=== PATIENT | male | born 1990 | race African-American/Black ===

== ENCOUNTER 2022-12-04 13:55 | Emergency (ER) | payer OTHER ==
[2022-12-04 14:34] LABS: GLUCOSE, URINE (UA) NEGATIVE (NEGATIVE); KETONES,URINE (UA) TRACE mg/dL (NEGATIVE); LEUKOCYTE ESTERASE, URINE NEGATIVE (NEGATIVE); NITRITE,URINE NEGATIVE (NEGATIVE); OCCULT BLOOD,URINE TRACE-INTA (NEGATIVE); PH,URINE 5.5 PH (5.0-7.5); PROTEIN,URINE 30 mg/dL (NEGATIVE); UROBILINOGEN,URINE 0.2 (NORMAL) E.U./dL (NORMAL)
[2022-12-04 14:46] LABS: BASOPHILS % (AUTO) 0.3 %; EOSINOPHILS % (AUTO) 0.4 %; HCT - HEMATOCRIT 54.4 % (42.0-52.0); HGB - HEMOGLOBIN 16.7 g/dL (14.0-18.0); LYMPHOCYTES # (AUTO) 0.4 10^3/uL (1.5-3.5); MEAN CORPUSCULAR HEMOGLOBIN 25.7 pg (27.0-31.0); MEAN CORPUSCULAR HGB CONC 30.7 g/dL (32.0-36.0); MEAN CORPUSCULAR VOLUME 83.8 fL (80.0-94.0); MEAN PLATELET VOLUME 10.2 fL (7.4-11.4); MONOCYTES # (AUTO) 0.3 10^3/uL (0.0-1.0); MONOCYTES % (AUTO) 4.3 %; NEUTROPHILS # (AUTO) 6.3 10^3/uL (1.5-6.6); NEUTROPHILS % (AUTO) 89.9 %; PLT - PLATELET COUNT 321 10^3/uL (130-450); RED BLOOD COUNT 6.49 10^6/uL (4.70-6.10); RED CELL DISTRIBUTION WIDTH 12.4 % (12.0-15.0)
[2022-12-04 14:47] LABS: BACTERIA,URINE Few /HPF (None Seen); BILIRUBIN,URINE NEGATIVE (NEGATIVE); CLARITY,URINE CLEAR (CLEAR); ICTOTEST,URINE NEGATIVE; MUCUS,URINE Marked Strands; RBC,URINE 0-5 /HPF (0-5); SQUAMOUS EPITHELIAL CELL,UR RARE Squamous (<= Few); WBC,URINE 0-3 /HPF (0-3)
[2022-12-04 14:57] LABS: ALBUMIN 5.5 g/dL (3.2-5.5); ALBUMIN/GLOBULIN RATIO 1.3 (1.0-2.2); CALCIUM 9.9 mg/dL (8.5-10.3); CREATININE 1.4 mg/dL (0.6-1.2); POTASSIUM 4.7 mmol/L (3.5-5.0); TOTAL PROTEIN 9.6 g/dL (6.7-8.2)
[2022-12-04] MEDS: SODIUM CHLORIDE 0.9% 1,000 ML IV STA ×2 (15:00→16:04)
--- NOTE | 2022-12-04 15:00 | ED Physician Documentation ---
PD HPI ABD PAIN - Stated complaint Stated Complaint: VOMITING/DIZZY/HEAD PX - Chief complaint Chief Complaint: Abd Pain - History obtained from History obtained from: Patient - Additional information Additional information: This is a 32-year-old male with no significant past medical history who presents with nausea, vomiting, diarrhea, and dizziness. Symptoms started this morning. His 13-year-old daughter had similar symptoms couple days ago which have since resolved. Patient denies any abdominal pain has not had a fever or chills, no constipation, no dysuria or urinary symptoms. No recent travel, he did go to [place] and return in September but nothing recently. No atypical foods or water sources. Review of Systems Constitutional: reports: Reviewed and negative, Other (All other systems reviewed and are negative except as described in HPI.) PD PAST MEDICAL HISTORY - Past Medical History Past Medical History: No - Present Medications Home Medications: Ambulatory Orders Medication Instructions Recorded Confirmed ONDANSETRON ODT Prepack 2 [ZOFRAN 4 mg TL Q6H #12 tablet 12/04/22 ODT Prepack 2] - Allergies Allergies/Adverse Reactions: Allergies Allergy/AdvReac Type Severity Reaction Status Date / Time No Known Drug Allergies Allergy Verified 12/04/22 14:06 PD ED PE NORMAL - Vitals Vital signs reviewed: Yes - General General: Alert and oriented X 3, No acute distress, Well developed/nourished - HEENT HEENT: Atraumatic, Pharynx benign - Neck Neck: Supple, no meningeal sign, No JVD - Cardiac Cardiac: RRR, No murmur - Respiratory Respiratory: No respiratory distress, Clear bilaterally - Abdomen Abdomen: Normal bowel sounds, Soft, Non tender, Non distended - Back Back: No CVA TTP, No spinal TTP - Derm Derm: Normal color, Warm and dry, No rash - Neuro Neuro: Alert and oriented X 3 Eye Opening: Spontaneous Motor: Obeys Commands Verbal: Oriented GCS Score: 15 - Psych Psych: Normal mood, Normal affect Results - Vitals Vitals: Vital Signs - 24 hr 12/04/22 12/04/22 14:06 15:04 Temperature 36.8 C Heart Rate 90 77 Respiratory 16 15 Rate Blood Pressure 107/70 112/76 O2 Saturation 97 99 Oxygen O2 Source Room air - Labs Labs: Laboratory Tests 12/04/22 12/04/22 12/04/22 14:15 14:39 14:39 WBC 7.0 RBC 6.49 H Hgb 16.7 Hct 54.4 H MCV 83.8 MCH 25.7 L MCHC 30.7 L RDW 12.4 Plt Count 321 MPV 10.2 Neut # (Auto) 6.3 Lymph # (Auto) 0.4 L [place] # (Auto) 0.3 Eos # (Auto) 0.0 Baso # (Auto) 0.0 Absolute Nucleated RBC 0.00 Nucleated RBC % 0.0 Sodium 139 Potassium 4.7 Chloride 105 Carbon Dioxide 26 Anion Gap 8.0 BUN 14 Creatinine 1.4 H Estimated GFR (MDRD) 70 L Glucose 103 H Calcium 9.9 Total Bilirubin 1.0 AST 25 ALT 41 Alkaline Phosphatase 67 Total Protein 9.6 H Albumin 5.5 Globulin 4.1 Albumin/Globulin Ratio 1.3 Lipase 28 Urine Color DARK YELLOW Urine Clarity CLEAR Urine pH 5.5 Ur Specific [place] >=1.030 H Urine Protein 30 H Urine Glucose (UA) NEGATIVE Urine Ketones TRACE Urine Occult Blood TRACE-INTA Urine Nitrite NEGATIVE Urine Bilirubin NEGATIVE Urine Urobilinogen 0.2 (NORMAL) Ur Leukocyte Esterase NEGATIVE Urine RBC 0-5 Urine WBC 0-3 Ur Squamous Epith Cells RARE Squamous Urine Bacteria Few Urine Mucus Marked Strands Ur Microscopic Review INDICATED Urine Culture Comments NOT INDICATED PD Medical Decision Making - ED course Complexity details: reviewed results, re-evaluated patient, considered differential, d/w patient, d/w family ED course: This is a very nice 32-year-old male who presents with nausea, vomiting, diarrhea and dizziness/weakness since this morning. His daughter had similar symptoms as described in HPI. Patient is well-appearing on physical exam, nontoxic and in no acute distress. Differentials considered included gastroenteritis, colitis, diverticulitis, much less likely another acute abdominal process such as appendicitis, cholecystitis or cholelithiasis, or panc reatitis. The patient had no reproducible abdominal pain on physical exam however And his labs are Largely reassuring And his daughter had the same his symptoms thus very likely this is a viral gastroenteritis. Labs reveal no leukocytosis, stable H&H, he does have a mild EMILY with a creatinine of 1.4, otherwise stable electrolytes And liver function. His lipase is normal. His urinalysis is not suggestive of infection.. The patient was given a liter of IV fluid as well as 4 mg of IV Zofran with improvement in symptoms. We will discharge him with Zofran as needed and can encourage clear liquid diet, he can advance to a bland diet as tolerated. I discussed with patient that this is typically self-limiting, it should improve in the next 1 to 2 days but if he had worsening symptoms or was still unable to tolerate p.o., he should return to the ER for reevaluation. Departure - Departure Clinical Impression: Gastroenteritis Condition: Good Instructions: ED Gastroenteritis Viral Prescriptions: ONDANSETRON ODT Prepack 2 [ZOFRAN ODT Prepack 2] 4 mg TL Q6H #12 tablet
[2022-12-04] MEDS: ONDANSETRON 4 MG/2 ML VIAL IVP STA (15:05)
[2022-12-04 17:10] VITALS: BP 109/70
== END 2022-12-04 17:48 | disposition home or self-care (01) ==
LOC: ED 13:55
DX: K52.9 Noninfective gastroenteritis and colitis, unspecified (principal)
CPT/HCPCS: 36415; 80053; 81001; 81003; 83690; 85025; 87086; 96374; 99284